=== PATIENT | female | born 1960 | race Caucasian/White ===

== ENCOUNTER 2017-12-28 15:21 | Emergency (ER) | payer OTHER ==
[2017-12-28 15:52] VITALS: BP 111/65; PULSE 74; TEMP 98.4; BMI 31.6
--- NOTE | 2017-12-28 15:52 | PDOC ---
Rapid Medical Evaluation Chief Complaint: Pain, Acute Time Seen by Provider: 12/28/17 15:48 Medical Evaluation: Allergies Allergy/AdvReac Type Severity Reaction Status Date / Time No Known Allergies Allergy Verified 12/18/15 16:41 12/28/17 15:49 CC: Right leg pain HPI: Pt is an 57 YO female who states over one week she has had right leg pain. Denies injury/trauma. She has had a MRI of her lumbar spine and she states the MD states Denies leg edema. Pain is a 6/10. No pain meds today. Denies edema I have performed a brief in- person evaluation of this patient. Pertinent Physical Findings: Skin: Clear Lungs: Clear Heart: RRR Abdomen: no pain upon palpation; MS: pt has pain on the lumbar spine and right gluteus janeen Neuro: Alert Psych: Appropriate affect I have ordered: nothing at this time. The patient will proceed to: [facility] for further evaluation Discharge Disposition - Diagnosis Back pain Qualifiers: Back pain location: low back pain Chronicity: acute Back pain laterality: right Sciatica presence: with sciatica Sciatica laterality: sciatica of right side Qualified Code(s): M54.41 - Lumbago with sciatica, right side - Referrals - Patient Instructions - Post Discharge Activity
[2017-12-28] MEDS ORDERED: KETOROLAC TROMETHAMINE 60 MG/2 ML VIAL IM ONE (16:28)
[2017-12-28] MEDS ORDERED: CYCLOBENZAPRINE HCL 10 MG TABLET (FP) PO ONE (16:28)
--- NOTE | 2017-12-28 16:28 | PDOC ---
History of Present Illness - General Chief Complaint: Pain, Acute Stated Complaint: LEG PAIN Time Seen by Provider: 12/28/17 15:48 History Source: Patient Exam Limitations: No Limitations - History of Present Illness Initial Comments: 12/28/17 19:51 Patient is a 57-year-old female with past medical history of low back pain, who presents emergency department today for right lower back pain radiating down her right leg. Patient states that her pain started yesterday. She does not remember bending over or lifting anything heavy to increase her pain. Patient states that she is having low back pain for a while and had an MRI done back in August. She states that the pain is worse today and that is running down her leg. Denies fevers, chills, numbness and tingling down the extremities, weakness of the extremities, bladder bowel incontinence and saddle anesthesia. Past History - Travel Traveled outside of the country in the last 30 days: No Close contact w/someone who was outside of country & ill: No - Past Medical History Allergies/Adverse Reactions: Allergies Allergy/AdvReac Type Severity Reaction Status Date / Time No Known Allergies Allergy Verified 12/28/17 15:50 Home Medications: Ambulatory Orders Thyroid,Pork [[place]ales Thyroid] 30 mg PO DAILY 12/18/15 Cyclobenzaprine HCl [Flexeril -] 10 mg PO HS #10 tablet 12/28/17 Ibuprofen 800 mg PO TID #30 tablet 12/28/17 COPD: No CHF: No Thyroid Disease: Yes - Immunization History Immunization Up to Date: Yes - Suicide/Smoking/Psychosocial Hx Smoking History: Never smoked Have you smoked in the past 12 months: No Hx Alcohol Use: No Drug/Substance Use Hx: No Substance Use Type: None Review of Systems - Review of Systems Able to Perform ROS?: Yes Comments:: 12/28/17 16:27 CONSTITUTIONAL: Absent: fever, chills, diaphoresis, generalized weakness, malaise, loss of appetite GASTROINTESTINAL: Absent: abdominal pain, abdominal distension, nausea, vomiting, diarrhea, constipation, melena, hematochezia GENITOURINARY: Absent: dysuria, frequency, urgency, hesitancy, hematuria, flank pain, genital pain MUSCULOSKELETAL: Present: low back pain Absent: arthralgia, joint swelling SKIN: Absent: rash, itching, pallor NEUROLOGIC: Absent: headache, focal weakness or paresthesias, dizziness, unsteady gait, seizure, mental status changes, bladder or bowel incontinence PSYCHIATRIC: Absent: anxiety, depression, suicidal or homicidal ideation, hallucinations. Is the patient limited Setswana proficient: No *Physical Exam - Vital Signs Last Vital Signs Temp Pulse Resp BP Pulse Ox 98.4 F 74 15 111/65 100 12/28/17 15:50 12/28/17 15:50 12/28/17 15:50 12/28/17 15:50 12/28/17 15:50 - Physical Exam Comments: 12/28/17 16:28 GENERAL: Well developed, well nourished. Awake and alert. No acute distress. NECK: Supple. Full ROM. No JVD. Carotid pulses 2+ and symmetric, without bruits. No thyromegaly. No lymphadenopathy. MUSCULOSKELETAL TTP of the R paraspinous muscles, L3-L5, with palpable knot consistent with muscle spasm. (+) Straight leg raise on the R. Normal range of motion at all other joints. No bony deformities or tenderness. No CVA tenderness. EXTREMITIES: No cyanosis. No clubbing. No edema. No calf tenderness. SKIN: Warm and dry. Normal capillary refill. No rashes. No jaundice. NEUROLOGICAL: Alert, awake, appropriate. Cranial nerves 2-12 intact. No deficits to light touch and temperature in face, upper extremities and lower extremities. No motor deficits in the in face, upper extremities and lower extremities. Normoreflexic in the upper and lower extremities. Normal speech. Toes are down- going bilaterally. Gait is normal without ataxia. PSYCHIATRIC: Cooperative. Good eye contact. Appropriate mood and affect. Medical Decision Making - Medical Decision Making 12/28/17 19:51 Patient is a 57-year-old female with past medical history of low back pain, who presents emergency department today for right lower back pain radiating down her right leg. -Pt with TTP of the R paraspinous muscles, L3-L5, with palpable knot consistent with muscle spasm. (+) Straight leg raise on the R. -No trauma, or fever. No saddle anesthesia or bladder/bowel incontinence. No CVA tenderness. -Pt is neurologically intact on exam with no focal findings. -Toradol given with relief of symptoms -DC home. Ortho follow up given for if symptoms do not resolve. -I discussed the physical exam findings, ancillary test results and final diagnoses with the patient. I answered all of the patient's questions. The patient was satisfied with the care received and felt comfortable with the discharge plan and treatment plan. The Patient agrees to follow up with the primary care physician/specialist within 24-72 hours. Return precautions were given. *DC/Admit/Observation/Transfer Diagnosis at time of Disposition: Back pain Qualifiers: Back pain location: low back pain Chronicity: acute Back pain laterality: right Sciatica presence: with sciatica Sciatica laterality: sciatica of right side Qualified Code(s): M54.41 - Lumbago with sciatica, right side - Discharge Dispostion Disposition: HOME Condition at time of disposition: Stable Decision to Admit order: No - Prescriptions Prescriptions: Cyclobenzaprine HCl [Flexeril -] 10 mg PO HS #10 tablet Ibuprofen 800 mg PO TID #30 tablet - Referrals Referrals: Oliver Garcia MD [Primary Care Provider] - - Patient Instructions Printed Discharge Instructions: DI for Low Back Pain Additional Instructions: You have low back pain due to a muscle spasm. Please take ibuprofen 800 mg 3 times a day not to exceed 3000 mg a day. You were also prescribed Flexeril. Please take this medication every 8 hours for the first day. Then take the medication before you go to bed. Do not drive after taking this medication as it may make you sleepy. You may use warm compresses on your back to help with her symptoms. Please follow-up with your primary care doctor. If your symptoms do not resolve in 3-5 days, follow-up with orthopedics. A referral has been provided for you. Return to the emergency department if you have worsening back pain, bladder or bowel incontinence, numbness and tingling in her legs, changes in the way you walk, or any new or worsening symptoms. Tiene dolor lumbar debido a un espasmo muscular. [place] ibuprofeno 800 mg 3 veces al da sin exceder los 3000 mg al da. Tambin te recetaron Flexeril. [place] hilary medicamento cada 8 horas dottie el primer da. Luego tome el medicamento antes de irse a la cama. No maneje despus de almas hilary medicamento, ya que puede causarle sueo. Puede usar compresas tibias en la espalda para ayudar con teddy sntomas. Por favor sarah un seguimiento con bermudez mdico de atencin primaria. Si teddy sntomas no se resuelven en 3-5 suarez, sarah un seguimiento con ortopedia. Se antony proporcionado teri referencia para usted. Regrese a la chery de emergencias si tiene empeoramiento del dolor de espalda, incontinencia de la vejiga o el intestino, entumecimiento y hormigueo en las piernas, cambios en la forma en que camina, o cualquier sntoma nuevo o que empeora. Print Language: [place]THER[place] IRISH - Post Discharge Activity Forms/Work/School Notes: Back to Work, Parent(s) Back to Work Note
[2017-12-28] MEDS ORDERED: KETOROLAC TROMETHAMINE 60 MG/2 ML VIAL ONE (16:33)
[2017-12-28] MEDS ORDERED: CYCLOBENZAPRINE HCL 10 MG TABLET (FP) ONE (16:33)
== END 2017-12-28 17:31 | disposition home or self-care (01) ==
LOC: JERFT 15:21
PROC: 3E0233Z Introduction of Anti-inflammatory into Muscle, Percutaneous Approach (ICD-10-PCS; principal; 2017-12-28)
DX: M54.42 Lumbago with sciatica, left side (principal)
CPT/HCPCS: 99281-25

== ENCOUNTER 2018-09-07 07:37 | Day surgery (SDC) | payer OTHER | END 2018-09-08 13:14 | disposition home or self-care (01) | LOC: JASU-SURG 07:37 → JASUSAT 09-08 13:14 → J6S 18:37 ==

== ENCOUNTER 2021-01-01 19:26 | Emergency (ER) | payer OTHER ==
[2021-01-01 19:31] VITALS: BP 124/82; PULSE 84; TEMP 97; BMI 33.2
[2021-01-01] MEDS ORDERED: METHOCARBAMOL 500 MG TABLET PO ONE (19:53)
[2021-01-01] MEDS ORDERED: LIDOCAINE 5% TOPICAL PATCH TP ONE (19:53)
[2021-01-01] MEDS ORDERED: KETOROLAC TROMETHAMINE 30 MG/1 ML VIAL IM ONE (19:53)
[2021-01-01] MEDS ORDERED: KETOROLAC TROMETHAMINE 30 MG/1 ML VIAL ONE (19:54)
[2021-01-01] MEDS ORDERED: METHOCARBAMOL 500 MG TABLET ONE (19:54)
[2021-01-01] MEDS ORDERED: LIDOCAINE 5% TOPICAL PATCH ONE (19:54)
== END 2021-01-01 21:02 | disposition home or self-care (01) ==
LOC: JERFT 19:26
PROC: 3E0233Z Introduction of Anti-inflammatory into Muscle, Percutaneous Approach (ICD-10-PCS; principal; 2021-01-01)
DX: M54.41 Lumbago with sciatica, right side (principal); M54.42 Lumbago with sciatica, left side
CPT/HCPCS: 72100-TC-FY; 99284-25

== ENCOUNTER 2023-09-15 09:19 | Emergency (ER) | payer OTHER ==
[2023-09-15 09:27] VITALS: BP 107/72; PULSE 110; RESP 18; TEMP 98.2; BMI 31.2
[2023-09-15 11:20] LABS: THROAT:GRP A STREP NOT DETECTED (NOTDETECTED)
== END 2023-09-15 11:11 | disposition home or self-care (01) ==
LOC: JERFT 09:19
DX: J01.10 Acute frontal sinusitis, unspecified (principal); B34.9 Viral infection, unspecified; R51.9 Headache, unspecified; R50.9 Fever, unspecified; R52 Pain, unspecified; Z20.822 Contact with and (suspected) exposure to COVID-19
CPT/HCPCS: 0241U-QW; 87651; 99283-25